=== PATIENT | male | born 2000 | race Caucasian/White ===

== ENCOUNTER 2020-01-27 14:54 | Emergency (ER) | payer OTHER, SELFPAY ==
[2020-01-27 15:13] VITALS: BP 129/70; PULSE 66; RESP 16; TEMP 37.1; O2SAT 100
--- NOTE | 2020-01-27 15:14 | ED.SKABFB ---
HPI - Skin/Abscess/Foreign Bdy General Chief complaint: Skin/Abscess/Foreign Body Stated complaint: poison darius Time Seen by Provider: 01/27/20 15:15 Source: patient and RN notes reviewed Mode of arrival: ambulatory Limitations: no limitations History of Present Illness HPI narrative: This is a 19 years old male presents to the office for an evaluation of poison darius rash. He was working on somebody else's yard pulling weeds and trees off the fence; he noticed the rash in that same evening when he went to bed. He woke up this morning with swollen face and itchy all over. He try [id number] Benadryl spray on his lesion with no relief. He did not take anything orally. Td is up-to-date. His friend drove him here and wait in the parking lot. Related Data Allergies Allergy/AdvReac Type Severity Reaction Status Date / Time No Known Allergies Allergy Verified 01/27/20 15:17 Review of Systems Review of Systems: Narrative: CONSTITUTIONAL: Denies fever or feeling ill EYES: Denies visual changes. Reports left eyelid swollen ENT: Denies difficulty swallowing or swollen lip or tongue. CARDIOVASCULAR: Denies chest pain RESPIRATORY: Denies dyspnea GASTROINTESTINAL: Denies abdominal pain, nausea, vomiting SKIN: Reports itchy rash and swollen face MUSCULOSKELETAL: Denies joints pain NEUROLOGIC: Denies lightheaded All other systems reviewed are negative, except as documented in HPI. PMFSH Social History Social History Gender identity (if verbalized by the patient): Male Comments At time of signature, I agree with nursing past medical, surgical, social and family history. There is no relevant family history pertinent to the presenting complaint. Exam Narrative: Exam Narrative: GENERAL: This is a well-nourished, well-developed patient, in no apparent distress. EYES: PERRL. EMOI. Left lower lid appears edematous and erythema. Sclera clear/white. Vision is grossly intact. THROAT: Mucous membranes moist, posterior pharynx clear. NECK: Neck supple, non-tender without lymphadenopathy, masses or thyromegaly. CARDIOVASCULAR: Regular rate and rhythm without murmurs, gallops, or rubs. RESPIRATORY: Clear to auscultation. Breath sounds equal bilaterally. No wheezes, rales, or rhonchi. GASTROINTESTINAL: Abdomen soft, non-tender, nondistended. Bowel sounds are active. No hepato-splenomegaly, or palpable masses. No guarding. SKIN:Face is flush, left ear appears edematous, torso noted scatter macular erythematous lesions, upper and lower extremities noted macular-erythema linear streak with scatter macular lesions. NEURO: awake, alert, and oriented to person, place and time. There were no obvious focal neurologic abnormalities. Steady gait EXTREMITIES: Normal range of motion. No edema. Lizeth Coma Scale Eye Opening: Spontaneous 4 Lizeth Coma Scale Motor: Obeys Commands 6 Lizeth Coma Scale Verbal: Oriented 5 Course Vital Signs Vital signs: Vital Signs Temperature 98.7 F 01/27/20 15:13 Pulse Rate 66 01/27/20 15:13 Respiratory Rate 16 01/27/20 15:13 Blood Pressure 129/70 01/27/20 15:13 Pulse Oximetry 100 01/27/20 15:13 Temperature 98.7 F 01/27/20 15:13 Pulse Rate 66 01/27/20 15:13 Respiratory Rate 16 01/27/20 15:13 Blood Pressure 129/70 01/27/20 15:13 Pulse Oximetry 100 01/27/20 15:13 MDM - Skin/Abscess/Foreign Bdy MDM Narrative Medical decision making narrative: Discharge instructions reviewed with patient, as well as provided in writing per nursing staff. The instructions also include specific and strict return/GO TO THE ER as well as f/u information. All questions have been answered, and the patient deny any further questions with discharge and discharge plan. Differential Diagnosis Differential diagnosis: Likely viral exanthem, urticaria, allergic reaction to drug, eczema, insect bites and contact dermatitis Critical Care Time Critic
[2020-01-27] MEDS: methylPREDNISolone ACETATE 40 MG/ML VIAL 60 MG IM (15:31)
== END 2020-01-27 15:46 | disposition home or self-care (01) ==
PROVIDERS: Emergency Provider Nurse Practitioner
DX: L24.7 Irritant contact dermatitis due to plants, except food (principal)
CPT/HCPCS: 96372; 99203; A9270; G0463; J1030

== ENCOUNTER 2021-02-23 10:27 | Emergency (ER) | payer OTHER, SELFPAY ==
[2021-02-23 10:38] VITALS: BP 149/77; PULSE 76; RESP 16; TEMP 37.2; O2SAT 100
--- NOTE | 2021-02-23 12:30 | ED.WOUNDLAC ---
HPI - Wound/Laceration General Chief Complaint: Wound/Laceration Stated Complaint: cut left leg Time Seen by Provider: 02/23/21 12:30 Source: patient Mode of arrival: ambulatory Limitations: no limitations History of Present Illness HPI narrative: Butch Fuentes is a 20-year-old male who comes to [facility] with a laceration just left lower leg after using a prior to this morning. States the laceration had blood work and his Workmen's Comp. injury Related Data Home Medications Medication Instructions Recorded Confirmed Allergy Med. 02/23/21 Allergies Allergy/AdvReac Type Severity Reaction Status Date / Time No Known Allergies Allergy Verified 01/27/20 15:17 Review of Systems Review of Systems: Narrative: CONSTITUTIONAL: Denies fever, chills, sweats. EYES: Denies visual changes, redness, discharge. ENT: Denies rhinorrhea, congestion, sore throat, otalgia. CARDIOVASCULAR: Denies chest pain, palpitations, edema. RESPIRATORY: Denies dyspnea, wheezing, cough GASTROINTESTINAL: Denies abdominal pain, nausea, vomiting, diarrhea. GENITOURINARY: Denies dysuria, hematuria, abnormal discharge SKIN: Denies rash or itching. Small lac of left anterior leg NEUROLOGIC: Denies numbness, or focal weakness. PSYCHIATRIC: Denies anxiety or depression. PMFSH Past Medical History Medical History No acute medical problems Family History Family History (Updated 02/23/21 @ 13:20 by Courtney Guy CNP) Other No acute medical problems Social History Social History (Updated 02/23/21 @ 13:21 by Courtney Guy CNP) Smoking status: Never smoker Alcohol intake: never Gender identity (if verbalized by the patient): Male Comments At time of signature, I agree with nursing past medical, surgical, social and family history. There is no relevant family history pertinent to the presenting complaint. Exam Narrative: Exam Narrative: GENERAL: This is a well-nourished, well-developed patient, in mild distress. HEAD: normocephalic, atraumatic. EYES: Sclera clear/white. Vision is grossly intact. EARS: External ears normal, Hearing grossly intact. NOSE: External nose normal without nasal discharge, nares without redness, no rhinorrhea. THROAT: Mucous membranes moist, NECK: Neck supple, non-tender CARDIOVASCULAR: Regular rate and rhythm without murmurs, gallops, or rubs. RESPIRATORY: Clear to auscultation. Breath sounds equal bilaterally. No wheezes, rales, or rhonchi. GASTROINTESTINAL: Abdomen soft, SKIN: warm, intact with no suspicious lesions or rash, good texture and turgor.2.5 cm laceration with controlled bleeding NEURO: awake, alert, and oriented to person, place and time. There were no obvious focal neurologic abnormalities. Steady gait EXTREMITIES: Normal range of motion. BACK: Nontender without deformity Course Course Emergency Course: Patient was cut on the left lower anterior leg with a tape scraper this morning Laceration repair done Vital Signs Vital signs: Vital Signs Temperature 99.0 F 02/23/21 10:38 Pulse Rate 76 02/23/21 10:38 Respiratory Rate 16 02/23/21 10:38 Blood Pressure 149/77 H 02/23/21 10:38 Pulse Oximetry 100 02/23/21 10:38 Temperature 99.0 F 02/23/21 10:38 Pulse Rate 76 02/23/21 10:38 Respiratory Rate 16 02/23/21 10:38 Blood Pressure 149/77 H 02/23/21 10:38 Pulse Oximetry 100 02/23/21 10:38 Procedures Laceration Laceration 1: Date: 02/23/21 Time: 13:07 Site: lower extremity Side (If applicable): left Size (cm): 2.5 Description: linear Depth: simple, single layer Local Anesthetic: lidocaine 1% Amount of anesthesia used (mL): 2 ====== Skin Level ====== Number of sutures: 4 Technique: simple, interrupted ====== Subcutaneous Layer ====== ====== Muscle Layer ====== ====== Tendon Layer ======
--- NOTE | 2021-02-23 13:10 | PC.NURSE ---
1306 filling winder at bedside to do sutures.
== END 2021-02-23 13:30 | disposition home or self-care (01) ==
PROVIDERS: Emergency Provider Nurse Practitioner
DX: S81.812A Laceration without foreign body, left lower leg, initial encounter (principal); X58.XXXA Exposure to other specified factors, initial encounter; Y99.0 Civilian activity done for income or pay
CPT/HCPCS: 12001; 99212; G0463

== ENCOUNTER 2021-05-20 12:27 | Emergency (ER) | payer OTHER, SELFPAY ==
--- NOTE | ~2021-05-20 | XR_ITS ---
XR foot LT min 3V 05/20/2021 12:58 INDICATION: Foot pain after trauma PROCEDURE: 4 views left foot COMPARISON: No prior studies for comparison. FINDINGS: Fracture, dislocation or subluxation is not identified. Lisfranc joint intact. The soft tis sues appear within normal limits. No foreign bodies are identified. IMPRESSION: 1: NO ACUTE BONE OR JOINT ABNORMALITY IDENTIFIED. Reviewed, dictated and finalized at location A.
[2021-05-20 12:37] VITALS: BP 147/78; PULSE 85; RESP 16; TEMP 36.9; O2SAT 100
--- NOTE | 2021-05-20 12:46 | ED.LOWEXIN ---
HPI - Extremity Injury (Lower) General Chief Complaint: Extremity Injury, Lower Stated Complaint: Left Toe Pain Time Seen by Provider: 05/20/21 13:10 Source: patient Mode of arrival: ambulatory Limitations: no limitations History of Present Illness HPI Narrative: Butch Fuentes is a 21-year-old male with no PMH who dropped a jackhammer on great toe and it avulsed most of toenail. He came into [facility] with a tourniquet on his foot because of the bleeding while the bleeding has subsided after the tourniquet removed, able to move toe but is difficult to tell whether the nail that's impacted is actually off Toe Painful to touch Related Data Home Medications Medication Instructions Recorded Confirmed loratadine [Claritin] 10 mg PO DAILY 05/20/21 05/20/21 Allergies Allergy/AdvReac Type Severity Reaction Status Date / Time No Known Allergies Allergy Verified 05/20/21 12:50 Review of Systems Review of Systems: CONSTITUTIONAL: Denies fever, chills, sweats. EYES: Denies visual changes, redness, discharge. ENT: Denies rhinorrhea, congestion, sore throat, otalgia. CARDIOVASCULAR: Denies chest pain, palpitations, edema. RESPIRATORY: Denies dyspnea, wheezing, cough GASTROINTESTINAL: Denies abdominal pain, nausea, vomiting, diarrhea. GENITOURINARY: Denies dysuria, hematuria, abnormal discharge SKIN: Denies rash or itching. NEUROLOGIC: Denies numbness, or focal weakness. PSYCHIATRIC: Denies anxiety or depression. Left great toe nail bleeding and partial removal PMFSH Past Medical History Medical History No acute medical problems Family History Family History Other No acute medical problems Social History Social History Smoking status: Never smoker Alcohol intake: never Gender identity (if verbalized by the patient): Male Comments At time of signature, I agree with nursing past medical, surgical, social and family history. There is no relevant family history pertinent to the presenting complaint. Exam Narrative: GENERAL: This is a well-nourished, well-developed patient, in moderate distress. HEAD: normocephalic, atraumatic. EYES: Sclera clear/white. Vision is grossly intact. EARS: External ears normal,. Hearing grossly intact. NOSE: External nose normal without nasal discharge, nares without redness, no rhinorrhea. THROAT: Mucous membranes moist, NECK: Neck supple, non-tender CARDIOVASCULAR: Regular rate and rhythm without murmurs, gallops, or rubs. RESPIRATORY: Clear to auscultation. Breath sounds equal bilaterally. No wheezes, rales, or rhonchi. GASTROINTESTINAL: Abdomen soft,, SKIN: warm, intact with no suspicious lesions or rash,. NEURO: awake, alert, and oriented to person, place and time. There were no obvious focal neurologic abnormalities. Steady gait EXTREMITIES: Normal range of motion. Left great toe with partial or full nail removal that is bloody and tender with hematoma at the base of the nail BACK: Nontender without deformity Course Course Emergency Course: Patient came with toenail injury Foot soak for assessment, after assessment of nail will apply Surgicel, pressure dressing, postop shoe, meds and antibiotics-patient to soak up Surgicel in 3 to 4 days and given directions Referral for follow-up with podiatry Vital Signs Vital signs: Vital Signs Temperature 98.5 F 05/20/21 12:37 Pulse Rate 85 05/20/21 12:37 Respiratory Rate 16 05/20/21 12:37 Blood Pressure 147/78 H 05/20/21 12:37 Pulse Oximetry 100 05/20/21 12:37 Temperature 98.5 F 05/20/21 12:37 Pulse Rate 85 05/20/21 12:37 Respiratory Rate 16 05/20/21 12:37 Blood Pressure 147/78 H 05/20/21 12:37 Pulse Oximetry 100 05/20/21 12:37 MDM - Extremity Injury (Lower) Differential Diagnosis Differential diagnosis: Likely fracture of
[2021-05-20] MEDS: LIDOCAINE HCL 1% LOCAL INJ 20 ML VIAL 5 ML INFILTRATE (13:31)
== END 2021-05-20 14:32 | disposition home or self-care (01) ==
PROVIDERS: Emergency Provider Nurse Practitioner
DX: S91.202A Unspecified open wound of left great toe with damage to nail, initial encounter (principal); W20.8XXA Other cause of strike by thrown, projected or falling object, initial encounter; J45.909 Unspecified asthma, uncomplicated
CPT/HCPCS: 73630; 99213; G0463

== ENCOUNTER 2024-10-30 08:20 | Emergency (ER) | payer OTHER, SELFPAY ==
--- NOTE | 2024-10-30 08:30 | ED.URI ---
HPI - URI/Sore Throat General Chief Complaint: Upper Respiratory Infection Stated Complaint: [place],fever,bodyaches Time Seen by Provider: 10/30/24 09:00 Source: patient and RN notes reviewed Mode of arrival: ambulatory Limitations: no limitations History of Present Illness HPI Narrative: 24-year-old male presents with concern for 2 day history of headache, body ache cough fever, sinus congestion. Reports his had flu. Reports he has been taking Tylenol MD elicited complaint: nasal congestion and sinus pain Related Data Allergies Allergy/AdvReac Type Severity Reaction Status Date / Time No Known Allergies Allergy Verified 05/20/21 12:50 Review of Systems Review of Systems: CONSTITUTIONAL: Reports malaise, fever. EYES: Denies visual changes, redness, or discharge. ENT: Reports rhinorrhea, congestion, sinus pain CARDIOVASCULAR: Denies chest pain, palpitations, or edema. RESPIRATORY: Reports cough. Denies dyspnea. GASTROINTESTINAL: Denies abdominal pain, nausea, vomiting, diarrhea SKIN: Denies rash or itching. MUSCULOSKELETAL: Reports myalgia. NEUROLOGIC: Reports headache. All systems reviewed & are unremarkable except as noted in HPI and below PMFSH Past Medical History Medical History No acute medical problems Family History Family History Other No acute medical problems Social History Social History Smoking status: Never smoker Alcohol intake: never Gender identity (if verbalized by the patient): Male Comments At time of signature, agree with nursing past medical, surgical, social and family history. There is no relevant family history pertinent to the presenting complaint Exam Narrative: GENERAL: Nontoxic-appearing, well-nourished, and in no acute distress. HEAD: Normocephalic EYES: PERRLA, conjunctivae clear ENT: Nares clear, turbinates edematous and erythematous, clear discharge. Mucous membranes moist. TM pearly núñez with sharp light reflex bilaterally; no tragal tenderness. Oropharynx not erythematous without lesions. Tonsils not enlarged and without exudate, no drooling, no hoarseness, no trismus, uvula midline. NECK: Supple. No lymphadenopathy CHEST: Clear to auscultation, breath sounds equal. No wheezing, rhonchi, rales, or stridor. No respiratory distress, speaks in full sentences. HEART: Regular rate and rhythm. No murmur heard. SKIN: Warm, dry, no rash. NEURO: Alert and oriented x3. PSYCH: Normal mood and affect Course Course Emergency Course: Patient is aware of diagnosis, understands and agrees to treatment plan. Anticipatory guidance given. Patient agrees to follow-up as directed and is aware of reasons to seek care at the emergency department. Portions of this record may have been created with voice recognition software Level of Care: [facility] Visit Vital Signs Vital signs: Reviewed. MDM - URI/Sore Throat MDM Narrative Medical decision making narrative: Differential diagnosis considered: Simmons virus, strep pharyngitis, allergic rhinitis, upper respiratory tract infection, sinusitis, rhinosinusitis, nasopharyngitis. viral pharyngitis, otitis media, otitis externa, pneumonia, bronchitis, viral cough syndrome, viral syndrome, and influenza. Exam findings show no acute concerns or changes; patient is non-toxic appearing and is in no distress. Patient is appropriate for outpatient treatment and follow-up. Lab Data Attestation: I reviewed the patient's lab results. Critical Care Time Critical Care Time Critical Care Time: No Discharge Plan Discharge Clinical Impression: COVID Patient Disposition: Home, Self-Care Condition: Stable Instructions: How to Recover from COVID-19 at Home (ED) Additional Instructions: Your rapid COVID test is positive. COVID is a virus, antibiotics are not effective against viruses. Your body has to kill viruses. ? Stay home when you are sick, except to get medical care. ? Stay home until your symptoms are resolving and you haven't had a fever for 24 hours. ? If you are self isolating at home where others live, use a separate room and bathroom for sick household members (if possible). Clean any shared rooms as needed, to avoid transmitting the virus. ? Wash your hands often with soap and water for at least 20 seconds, especially after blowing your nose, coughing, or sneezing; going to the bathroom; and before eating or preparing food. ? If soap and water are not available, use an alcohol-based hand mortgage loan interviewer with at least 60% alcohol. ? Have a supply of clean, disposable face masks. Everyone, no matter their COVID diagnosis, should wear face masks while in the home. - Over the counter medications such as Tylenol every 4 hours, ibuprofen every 6 hours (you can alternate these for maximum effect), Mucinex DM for cough, and psuedoephedrine (you must ask the pharmacist for this) can help relieve symptoms while your body fights off the virus. Watch for symptoms and learn when to seek emergency medical attention. If someone is showing any of these signs, seek emergency medical care immediately: ? Trouble breathing ? Persistent chest pain/pressure ? Confusion ? Inability to wake or stay awake ? Bluish lips or face Call 911 or call ahead to your local emergency room: Notify the maintenance equipment operator that you are seeking care for someone who has or may have COVID Patient Language: Indian Prescriptions: New pseudoephedrine HCl [12 Hour Decongestant] 120 mg tablet extended release 120 mg PO Q12H PRN (Reason: nasal congestion) Qty: 20 0RF Follow-up/Referrals: PHYSICIAN,[employer] [Primary Care Provider] - Stand Alone Forms: Work/School Release IP Time of Disposition: 09:08
[2024-10-30 08:36] VITALS: BP 141/75; PULSE 88; RESP 19; TEMP 37.2; O2SAT 98
[2024-10-30 09:12] LABS: EDCOVIDSCREEN Positive (Negative); EDINFLUASCREEN Negative (Negative); EDINFLUBSCREEN Negative (Negative)
== END 2024-10-30 09:25 | disposition home or self-care (01) ==
PROVIDERS: Emergency Provider Nurse Practitioner
DX: U07.1 COVID-19 (principal)
CPT/HCPCS: 87426; 87804; 99213; G0463

== ENCOUNTER 2025-03-13 08:31 | Emergency (ER) | payer OTHER, SELFPAY ==
[2025-03-13 08:42] VITALS: BP 137/76; PULSE 78; RESP 14; TEMP 37.2; O2SAT 98
--- NOTE | 2025-03-13 09:01 | ED.URI ---
HPI - URI/Sore Throat General Chief Complaint: Upper Respiratory Infection Stated Complaint: sore throat Time Seen by Provider: 03/13/25 08:55 Source: patient and RN notes reviewed Mode of arrival: ambulatory Limitations: no limitations History of Present Illness HPI Narrative: 24-year-old male presents to the [facility] complaining sore throat, congestion, sinus pressure, and dry cough for approximately 8 to 9 days. Patient says his girlfriend has strep was wonder if he has strep throat. Patient said he lost his voice yesterday the says his voice is not his horses that was last night. Patient denies any runny nose, earache, nausea vomiting, diarrhea, abdominal pain, chest pain, difficulty breathing. She has been taking Excedrin to help with the pain. Related Data Allergies Allergy/AdvReac Type Severity Reaction Status Date / Time cetirizine (From [facility]) AdvReac Intermediate other Verified 03/13/25 08:52 Review of Systems Review of Systems: CONSTITUTIONAL: Denies fever, chills, body aches, or sweats. EYES: Denies visual changes, redness, or discharge. ENT: Positive for sinus pressure, congestion, sore throat. Negative for rhinorrhea or otalgia. CARDIOVASCULAR: Denies chest pain, palpitations, or edema. RESPIRATORY: Positive for cough. Negative for dyspnea or wheezing. GASTROINTESTINAL: Denies abdominal pain, nausea, vomiting, or diarrhea. GENITOURINARY: Denies dysuria or hematuria. SKIN: Denies rash or itching. MUSCULOSKELETAL: Denies back pain, joint pain, or myalgia. NEUROLOGIC: Denies headache, numbness, or weakness. PSYCHIATRIC: Denies anxiety or depression. All other systems reviewed are negative, except as documented in HPI. [facility] Past Medical History Medical History No acute medical problems Family History Family History Other No acute medical problems Social History Social History Smoking status: Never smoker Alcohol intake: never Gender identity (if verbalized by the patient): Male Comments At the time of my signature, I reviewed and agree with the nursing past medical, surgical, social, and family history. There is no relevant family history pertinent to the patient complaint. Exam Narrative: GENERAL: This is a well-nourished, well-developed adult, in no apparent distress. They are non ill-appearing, nontoxic appearing. HEAD: normocephalic, atraumatic. EYES: Sclera clear/white. Vision is grossly intact. Conjunctiva normal bilaterally. Extraocular movements intact. EARS: External ears normal, auditory canals clear and without drainage, TMs without erythema or perforation. Hearing grossly intact. NOSE: External nose normal with no obvious nasal discharge, nasal turbinates erythematous, no rhinorrhea. Maxillary sinus tenderness to palpation. THROAT: Mucous membranes moist, posterior pharynx erythematous without exudate. Uvula is midline. Postnasal drip present. NECK: Neck supple, mild tender cervical lymphadenopathy, no masses or thyromegaly. CARDIOVASCULAR: Regular rate and rhythm without murmurs, gallops, or rubs. RESPIRATORY: Clear to auscultation. Breath sounds equal bilaterally. No wheezes, rales, or rhonchi. SKIN: warm, Dry, intact with no suspicious lesions or rash, good texture and turgor. NEURO: awake, alert, and oriented to person, place and time. There were no obvious focal neurologic abnormalities. EXTREMITIES: No joint tenderness, effusion, or edema noted. BACK: Nontender without deformity. Course Course Emergency Course: Portions of this record may have been created with voice recognition software Level of Care: [facility] Visit Vital Signs Vital signs: Vital Signs Temperature 99 F 03/13/25 08:42 Pulse Rate 78 03/13/25 08:42 Respiratory Rate 14 03/13/25 08:42 Blood Pressure 137/76 03/13/25 08:42 Pulse Oximetry 98 03/13/25 08:42 Oxygen Delivery Room Air 03/13/25 08:42 Temperature 99 F 03/13/25 08:42 Pulse Rate 78 03/13/25 08:42 Respiratory Rate 14 03/13/25 08:42 Blood Pressure 137/76 03/13/25 08:42 Pulse Oximetry 98 03/13/25 08:42 Oxygen Delivery Room Air 03/13/25 08:42 MDM - URI/Sore Throat MDM Narrative Medical decision making narrative: Rapid strep negative. Throat culture pending. Given patient's length of symptoms is likely has developed a bacterial sinusitis, will treat him with Augmentin. Discussed physical exam findings. Advised supportive measures and signs/symptoms to go to the ER. Pt is appropriate for outpt treatment and f/u. Differential Diagnosis Differential diagnosis: Likely upper respiratory infection, sinusitis and pharyngitis Lab Data Attestation: I reviewed the patient's lab results. Labs: Lab Results 03/13/25 Range/Units 09:04 POC Grp A Strep Screen Negative (Negative) Discharge Plan Discharge Clinical Impression: Sinusitis Qualifiers: Sinusitis location: unspecified location Chronicity: acute Recurrence: non-recurrent Qualified Code(s): J01.90 - Acute sinusitis, unspecified Patient Disposition: Home Condition: Stable Instructions: Antibiotic Form, Sinusitis (ED) Additional Instructions: Your rapid strep is negative. A throat culture will be sent off and if it is positive for strep you will be contacted. Take the antibiotics as directed and complete the course even if you start to feel better. You may use a Neti pot saline rinse 3 times a day with lukewarm distilled water Continue to take Tylenol or Motrin for pain. Use a humidifier or vaporizer at night. Drink plenty of water. 8-10 glasses per day. Use flonase 2 times per day for 5 days then as needed Take mucinex 2 times per day and be sure to take with 8oz of water. Follow up with Primary provider in 3-5 days Please go to the ER if he develops any difficulty breathing, worsening symptoms, or any other concerns Patient Language: Indonesian Prescriptions: New amoxicillin-pot clavulanate 875-125 mg tablet 1 tablet PO Q12H 7 Days Qty: 14 0RF Follow-up/Referrals: PHYSICIAN,[employer] M[employer] WORKER [Primary Care Provider] - Stand Alone Forms: Work/School Release IP Time of Disposition: 09:04
[2025-03-13 09:05] LABS: EDSTREPNEGPOS1 Negative (Negative)
== END 2025-03-13 09:15 | disposition home or self-care (01) ==
DX: J01.90 Acute sinusitis, unspecified (principal)
CPT/HCPCS: 87081; 87880; 99213; G0463